=== PATIENT | male | born 1940 | race Caucasian/White ===

== ENCOUNTER → 2017-01-11 | Outpatient (CLI) | payer MEDICARE, OTHER | LOC: ONC 08:59 | PROVIDERS: ATTEND Radiology Radiation Oncology | DX: C61 Malignant neoplasm of prostate (principal) | CPT/HCPCS: 36415; 84153 ==

== ENCOUNTER 2017-07-05 08:51 | Outpatient (RCR) | payer MEDICARE, OTHER | END 2017-10-03 | disposition home or self-care (01) | LOC: ONC 08:51 | PROVIDERS: ATTEND Radiology Radiation Oncology | DX: C61 Malignant neoplasm of prostate (principal) | CPT/HCPCS: 84153 ==

== ENCOUNTER → 2018-01-08 | Outpatient (CLI) | payer MEDICARE, OTHER | LOC: EDSTATUS 10-04 14:44 → ONC 14:45 | PROVIDERS: ATTEND Radiology Radiation Oncology | DX: C61 Malignant neoplasm of prostate (principal) | CPT/HCPCS: 36415; 84153 ==

== ENCOUNTER → 2018-07-24 | Outpatient (CLI) | payer MEDICARE, OTHER | LOC: ONC 09:10 | PROVIDERS: ATTEND Radiology Radiation Oncology | DX: C61 Malignant neoplasm of prostate (principal) | CPT/HCPCS: 36415; 84153 ==

== ENCOUNTER → 2019-02-20 | Outpatient (CLI) | payer MEDICARE, OTHER | LOC: ONC 08:34 | PROVIDERS: ATTEND Radiology Radiation Oncology | DX: C61 Malignant neoplasm of prostate (principal) | CPT/HCPCS: 36415; 84153 ==

== ENCOUNTER → 2021-11-17 | Outpatient (CLI) | payer MEDICARE, OTHER | LOC: ONC 09:03 | PROVIDERS: ATTEND Radiology Radiation Oncology | DX: C61 Malignant neoplasm of prostate (principal) | CPT/HCPCS: 36415; 84153 ==

== ENCOUNTER 2021-12-09 10:53 | Outpatient (RCR) | payer MEDICARE, OTHER | END 2021-12-25 | disposition home or self-care (01) | LOC: ONC 10:53 | PROVIDERS: ATTEND Radiology Radiation Oncology | DX: C61 Malignant neoplasm of prostate (principal); R97.21 Rising PSA following treatment for malignant neoplasm of prostate | CPT/HCPCS: 99213 ==

== ENCOUNTER → 2021-12-23 | Outpatient (CLI) | payer MEDICARE, OTHER ==
--- NOTE | 2021-12-23 14:59 | Diagnostic Imaging Report ---
INDICATION: Prostate carcinoma. Patient was administered 26.8 mCi technetium 99m MDP intravenously and whole-body imaging was performed after a 3 hour delay. COMPARISON: No prior studies are available for comparison. There is normal uptake of activity by the axial and appendicular skeleton. There is some uptake by both kidneys with excretion to the urinary bladder. Very mild uptake in the mid thoracic spine as well as in the lower lumbar spine is noted which is likely degenerative. No suspicious foci are identified to suggest osseous metastatic disease. IMPRESSION: No scintigraphic evidence of osseous metastatic disease. Dictated by: Dictated on workstation # [id number]
== END ==
LOC: CARD 12:00
PROVIDERS: ATTEND Radiology Radiation Oncology
DX: C61 Malignant neoplasm of prostate (principal)
CPT/HCPCS: 78306; A9503

== ENCOUNTER 2022-03-30 10:46 | Outpatient (RCR) | payer MEDICARE, OTHER | END 2022-03-31 10:56 | disposition home or self-care (01) | LOC: ONC 10:46 | PROVIDERS: ATTEND Internal Medicine Hematology & Oncology | DX: C61 Malignant neoplasm of prostate (principal); R97.21 Rising PSA following treatment for malignant neoplasm of prostate | CPT/HCPCS: 77290; 77334; 86334; 99213 ==

== ENCOUNTER → 2022-05-11 | Outpatient (CLI) | payer MEDICARE, OTHER | LOC: ONC 09:26 | PROVIDERS: ATTEND Radiology Radiation Oncology | DX: Z01.89 Encounter for other specified special examinations (principal) | CPT/HCPCS: 36415; 84153 ==

== ENCOUNTER 2022-05-26 12:00 | Outpatient (RCR) | payer MEDICARE, OTHER | END 2022-05-27 | disposition home or self-care (01) | LOC: ONC 12:00 | PROVIDERS: ATTEND Internal Medicine Hematology & Oncology | DX: C61 Malignant neoplasm of prostate (principal) | CPT/HCPCS: 99204; 99213; 99214 ==

== ENCOUNTER → 2022-05-26 | Outpatient (CLI) | payer MEDICARE, OTHER ==
[~2022-05-26] MED LIST: CATHETER FLUSH 10 ML SYR IV PRN; HOLD METFORMIN - RECEIVED CONTRAST 20 ML VIAL IV SCH; IOHEXOL 350 MG/ML 100 ML (OMNIPAQUE 350) VIAL IV ONE; NS 100 ML (IVPB) BAG IV ONE
[2022-05-26 12:15] LABS: BASOPHILS % (AUTO) 1 % (0-10); EOSINOPHILS # (AUTO) 0.2 10^3/uL (0.0-0.3); EOSINOPHILS % (AUTO) 2 % (0-10); HEMATOCRIT 49 % (40-54); HEMOGLOBIN 16.6 g/dL (13.3-17.7); LYMPHOCYTES # (AUTO) 3.2 10^3/uL (1.0-4.0); LYMPHOCYTES % (AUTO) 43 % (12-44); MEAN CORPUSCULAR HEMOGLOBIN 30 pg (25-34); MEAN CORPUSCULAR HGB CONC 34 g/dL (32-36); MEAN CORPUSCULAR VOLUME 88 fL (80-99); MONOCYTES # (AUTO) 0.6 10^3/uL (0.0-1.0); MONOCYTES % (AUTO) 8 % (0-12); NEUTROPHILS # (AUTO) 3.4 10^3/uL (1.8-7.8); NEUTROPHILS % (AUTO) 45 % (42-75); PLATELET COUNT 225 10^3/uL (130-400); WHITE BLOOD COUNT 7.5 10^3/uL (4.3-11.0)
[2022-05-26 12:41] LABS: ALBUMIN 3.9 GM/DL (3.2-4.5); BILIRUBIN,TOTAL 0.9 MG/DL (0.1-1.0); CALCIUM 9.3 MG/DL (8.5-10.1); CREATININE SERUM 1.54 MG/DL (0.60-1.30); POTASSIUM 4.2 MMOL/L (3.6-5.0); TOTAL PROTEIN 8.1 GM/DL (6.4-8.2)
--- NOTE | 2022-05-26 14:31 | Diagnostic Imaging Report ---
PROCEDURE: CT chest, abdomen, and pelvis with contrast. TECHNIQUE: Multiple contiguous axial images were obtained through the chest, abdomen, and pelvis after the administration of intravenous contrast. Auto Exposure Controls were utilized during the CT exam to meet ALARA standards for radiation dose reduction. INDICATION: Newly diagnosed prostate carcinoma. No prior studies are available for comparison. CT CHEST: FINDINGS: No axillary lymphadenopathy is detected. No pathologically enlarged mediastinal or hilar lymph nodes are identified. There is no pericardial or pleural fluid detected. There are coronary arterial calcifications. 9 mm noncalcified nodule in the anterior left upper lobe is noted, indeterminate. There is a second nodule more inferiorly in the left upper lobe measuring 5 mm. No other pulmonary masses are detected. There does appear to be some scarring in the right lower lobe. Bony structures are unremarkable. IMPRESSION: Left upper lobe pulmonary micronodules, indeterminate. No definite thoracic lymphadenopathy is seen. No other abnormalities are detected. CT ABDOMEN AND PELVIS: No discrete liver mass is detected. Gallbladder is unremarkable. There is no biliary ductal dilatation. The pancreas and spleen are unremarkable. No adrenal mass is detected. Kidneys are unremarkable. Aorta is nonaneurysmal. No central retroperitoneal or mesenteric lymphadenopathy is detected. No iliac or inguinal lymphadenopathy is detected. Prostate appears to be surgically absent. Bladder is unremarkable. The bowel loops are normal in caliber. There is diverticulosis of the sigmoid colon, but no evidence of acute vasculitis. There is no free fluid. Bony structures are without evidence of osteolytic or osteoblastic lesions. IMPRESSION: No evidence of abdominal or pelvic lymphadenopathy or metastatic disease. No acute feature is detected. There is uncomplicated diverticulosis. Dictated by: Dictated on workstation # [id number]
== END ==
LOC: RAD 11:45
PROVIDERS: ATTEND Internal Medicine Hematology & Oncology
DX: C61 Malignant neoplasm of prostate (principal); K57.30 Diverticulosis of large intestine without perforation or abscess without bleeding
CPT/HCPCS: 36415; 71260; 74177; 80053; 85025

== ENCOUNTER 2022-06-08 10:01 | Outpatient (RCR) | payer MEDICARE, OTHER ==
[~2022-06-08 10:01] MED LIST changes: -CATHETER FLUSH 10 ML SYR IV PRN; -HOLD METFORMIN - RECEIVED CONTRAST 20 ML VIAL IV SCH; -IOHEXOL 350 MG/ML 100 ML (OMNIPAQUE 350) VIAL IV ONE; +LEUPROLIDE 22.5 MG SYRINGE (ELIGARD) SQ SCH; -NS 100 ML (IVPB) BAG IV ONE
== END 2022-06-27 | disposition home or self-care (01) ==
LOC: ONC 10:01
PROVIDERS: ATTEND Internal Medicine Hematology & Oncology
DX: C61 Malignant neoplasm of prostate (principal)
CPT/HCPCS: 96402; 99213

== ENCOUNTER 2022-08-16 10:11 | Outpatient (RCR) | payer MEDICARE, OTHER ==
[2022-08-16 10:19] LABS: BASOPHILS % (AUTO) 1 % (0-10); EOSINOPHILS # (AUTO) 0.2 10^3/uL (0.0-0.3); EOSINOPHILS % (AUTO) 3 % (0-10); HEMATOCRIT 43 % (40-54); LYMPHOCYTES # (AUTO) 2.3 10^3/uL (1.0-4.0); LYMPHOCYTES % (AUTO) 38 % (12-44); MEAN CORPUSCULAR HEMOGLOBIN 30 pg (25-34); MEAN CORPUSCULAR HGB CONC 35 g/dL (32-36); MEAN CORPUSCULAR VOLUME 85 fL (80-99); MEAN PLATELET VOLUME 9.3 fL (9.0-12.2); MONOCYTES # (AUTO) 0.5 10^3/uL (0.0-1.0); MONOCYTES % (AUTO) 8 % (0-12); NEUTROPHILS # (AUTO) 3.1 10^3/uL (1.8-7.8); NEUTROPHILS % (AUTO) 51 % (42-75); PLATELET COUNT 212 10^3/uL (130-400)
[2022-08-16 10:40] LABS: ALBUMIN 3.7 GM/DL (3.2-4.5); BILIRUBIN,TOTAL 0.6 MG/DL (0.1-1.0); CALCIUM 9.1 MG/DL (8.5-10.1); CREATININE SERUM 1.34 MG/DL (0.60-1.30); POTASSIUM 4.1 MMOL/L (3.6-5.0); TOTAL PROTEIN 7.6 GM/DL (6.4-8.2)
== END 2022-08-27 | disposition home or self-care (01) ==
LOC: ONC 10:11
PROVIDERS: ATTEND Internal Medicine Hematology & Oncology
DX: C61 Malignant neoplasm of prostate (principal)
CPT/HCPCS: 36415; 80053; 85025